=== PATIENT | female | born 1935 | race Caucasian/White ===

== ENCOUNTER → 2016-10-14 | Outpatient (CLI) | payer MEDICARE, BC ==
--- NOTE | 2016-10-15 08:38 | XR ---
EXAMINATION TYPE: XR chest 2V DATE OF EXAM: 10/14/2016 3:20 PM COMPARISON: 12/11/2011 TECHNIQUE: PA and lateral views submitted. HISTORY: Shortness of breath FINDINGS: The lungs are clear and there is no pneumothorax, pleural effusion, or focal pneumonia. Degenerative changes spine and hyperinflation noted. Correlate for COPD. Heart size is mildly enlarge d. Chronic rib deformities are stable. Arthropathy of the shoulders. No overt failure. IMPRESSION: 1. No acute process. Correlate for COPD and mild cardiomegaly.
== END | disposition home or self-care (01) ==
LOC: RADXRYALE 15:09
PROVIDERS: ATTEND Family Medicine
DX: J44.9 Chronic obstructive pulmonary disease, unspecified (principal); I51.7 Cardiomegaly
CPT/HCPCS: 71020

== ENCOUNTER → 2017-04-29 | Outpatient (CLI) | payer MEDICARE, BC ==
--- NOTE | 2017-04-29 09:04 | XR ---
EXAMINATION TYPE: XR chest 2V DATE OF EXAM: 04/29/2017 COMPARISON: 10/14/2016 TECHNIQUE: PA and lateral views submitted. HISTORY: Cough FINDINGS: The lungs are clear and there is no pneumothorax, pleural effusion, or focal pneumonia. Hypertrophi c and degenerative change of the spine. Arthropathy shoulders. The heart is enlarged. Inflation sugge sts COPD. Without rib cage deformities on the right suggest previous trauma. IMPRESSION: 1. Cardiomegaly and findings suggestive of COPD. If symptoms persist consider CT scan.
== END | disposition home or self-care (01) ==
LOC: RADXRYALE 08:35
PROVIDERS: ATTEND Family Medicine
DX: I51.7 Cardiomegaly (principal)
CPT/HCPCS: 71020

== ENCOUNTER → 2017-07-04 | Outpatient (CLI) | payer MEDICARE, BC ==
--- NOTE | 2017-07-07 09:07 | XR ---
EXAMINATION TYPE: XR chest 2V DATE OF EXAM: 07/04/2017 COMPARISON: 04/29/2017 TECHNIQUE: PA and lateral views submitted. HISTORY: Cough FINDINGS: There is consolidation left lung base. Interstitial pattern noted. No pleural effusion or pneumothora x. Heart is prominent and there is hypertrophic and degenerative change of the spine. Correlate for C OPD. IMPRESSION: 1. Left lower lobe infiltrate correlate for pneumonia. Follow to resolution to exclude other etiologi es. 2. COPD.
== END ==
LOC: RADXRYALE 11:12
PROVIDERS: ATTEND Physician Assistant Medical
DX: R91.8 Other nonspecific abnormal finding of lung field (principal); J44.9 Chronic obstructive pulmonary disease, unspecified
CPT/HCPCS: 71046

== ENCOUNTER 2017-09-02 18:11 | Inpatient (IN) | payer MEDICARE, BC ==
[2017-09-02 18:56] LABS: Anisocytosis Slight; Basophils % (A) 0 %; Eosinophils # (A) 0.1 k/uL (0-0.7); Eosinophils % (A) 1 %; HCT 28.1 % (34.0-46.0); HGB 9.2 gm/dL (11.4-16.0); Lymphocytes # (A) 0.9 k/uL (1.0-4.8); Lymphocytes % (A) 9 %; MCHC 32.9 g/dL (31.0-37.0); MCV 91.4 fL (80.0-100.0); Monocytes # (A) 0.3 k/uL (0-1.0); Monocytes % (A) 3 %; Neutrophils # (A) 7.9 k/uL (1.3-7.7); Neutrophils % (A) 85 %; Platelet Count 144 k/uL (150-450); RBC 3.08 m/uL (3.80-5.40); RDW 16.3 % (11.5-15.5); WBC 9.3 k/uL (3.8-10.6)
[2017-09-02 19:03] LABS: Calcium 8.8 mg/dL (8.4-10.2); Magnesium 2.2 mg/dL (1.6-2.3); Potassium 5.4 mmol/L (3.5-5.1); Total Bilirubin 0.6 mg/dL (0.2-1.3); Total Protein 5.7 g/dL (6.3-8.2)
[2017-09-02 19:17] LABS: Creatine Kinase <20 U/L (30-135)
[2017-09-02 19:18] LABS: D-Dimer 0.43 mg/L FEU (<0.60); INR 1.4 (<1.2); Partial Thromboplastin Time 24.6 sec (22.0-30.0); Prothrombin Time 13.3 sec (9.0-12.0)
[2017-09-02 19:31] LABS: Creatine Kinase MB 0.3 ng/mL (0.0-2.4); Troponin I 0.015 ng/mL (0.000-0.034)
--- NOTE | 2017-09-02 19:34 | ED ---
General Adult HPI - General Chief complaint: Shortness of Breath Stated complaint: SOB Time Seen by Provider: 09/02/17 19:24 Source: patient, RN notes reviewed, old records reviewed Mode of arrival: ambulatory Limitations: no limitations - History of Present Illness Initial comments: This is an 82-year-old female to the ER today. Patient's presenting for ER for evaluation of shortness of breath. Patient has history of CHF history nature fibrillation. Patient sent to ER by for evaluation, she was having increased shortness of breath especially with exertion, cannot walk across the room cannot walk even about 15 feet before becoming significantly short of breath, she is improved when she sits down, she cannot lay down flat she has to sit up straight. No chest pain. No recent travel history or sick contacts - Related Data Home Medications Medication Instructions Recorded Confirmed Albuterol Inhaler [Ventolin Hfa 1 - 2 puff INHALATION Q6HR PRN 09/02/17 09/02/17 Inhaler] Amiodarone HCl [Pacerone] 400 mg PO DAILY 09/02/17 09/02/17 Apixaban [Eliquis] 5 mg PO BID 09/02/17 09/02/17 Diltiazem HCl 30 mg PO Q8H 09/02/17 09/02/17 Furosemide [Lasix] 20 mg PO DAILY 09/02/17 09/02/17 Lisinopril [Prinivil] 20 mg PO DAILY 09/02/17 09/02/17 Metoprolol Tartrate [Lopressor] 100 mg PO TID 09/02/17 09/02/17 Montelukast [Singulair] 10 mg PO HS 09/02/17 09/02/17 [place]-3 Fatty Acids/Fish Oil [Fish 1 cap PO DAILY 09/02/17 09/02/17 Oil 1,000 mg Softgel] Pravastatin Sodium [Pravachol] 40 mg PO HS 09/02/17 09/02/17 amLODIPine [Norvasc] 10 mg PO DAILY 09/02/17 09/02/17 guaiFENesin [Mucinex] 600 mg PO DAILY 09/02/17 09/02/17 Allergies Allergy/AdvReac Type Severity Reaction Status Date / Time morphine Allergy Vomiting Verified 09/02/17 19:23 Review of Systems ROS Statement: Those systems with pertinent positive or pertinent negative responses have been documented in the HPI. ROS Other: All systems not noted in ROS Statement are negative. Past Medical History Past Medical History: Heart Failure, Hyperlipidemia, Hypertension History of Any Multi-Drug Resistant Organisms: None Reported Past Surgical History: Hysterectomy Past Psychological History: No Psychological Hx Reported Smoking Status: Never smoker Past Alcohol Use History: None Reported Past Drug Use History: None Reported General Exam Limitations: no limitations General appearance: alert, in no apparent distress, anxious Head exam: Present: atraumatic, normocephalic, normal inspection Eye exam: Present: normal appearance, PERRL, EOMI. Absent: scleral icterus, conjunctival injection, periorbital swelling ENT exam: Present: normal exam, mucous membranes moist Neck exam: Present: normal inspection. Absent: tenderness, meningismus, lymphadenopathy Respiratory exam: Present: normal lung sounds bilaterally, respiratory distress , accessory muscle use, decreased breath sounds, prolonged expiratory. Absent: wheezes, rales, rhonchi, stridor Cardiovascular Exam: Present: tachycardia, irregular rhythm, normal heart sounds. Absent: systolic murmur, diastolic murmur, rubs, gallop, clicks GI/Abdominal exam: Present: soft, normal bowel sounds. Absent: distended, tenderness, guarding, rebound, rigid Extremities exam: Present: normal inspection, full ROM, normal capillary refill. Absent: tenderness, pedal edema, joint swelling, calf tenderness Back exam: Present: normal inspection Neurological exam: Present: alert, oriented X3, CN II-XII intact Psychiatric exam: Present: normal affect, normal mood Skin exam: Present: warm, dry, intact, normal color. Absent: rash Course Vital Signs 09/02/17 09/02/17 09/02/17 18:13 18:46 20:39 Temperature 98.2 F Pulse Rate 102 H 97 Respiratory 24 22 18 Rate Blood Pressure 119/76 124/60 O2 Sat by Pulse 99 96 Oximetry - Reevaluation(s) Reevaluation #1: 09/02/17 21:02 Patient does improve with heart rate control, she states she is relatively asymptomatic when sitting still EKG Findings - EKG Comments: EKG Findings:: EKG shows A. fib with RVR rate 101, QRS 96, QTc 471 Medical Decision Making - Medical Decision Making 82 female the ER for evaluation of shortness of breath. Patient coming in with acute on chronic CHF, acute and chronic A. fib with RVR, will admit - Lab Data Result diagrams: 09/02/17 18:40 09/02/17 18:40 Lab Results 09/02/17 09/02/17 09/02/17 Range/Units 18:40 18:40 18:40 WBC 9.3 (3.8-10.6) k/uL RBC 3.08 L (3.80-5.40) m/uL Hgb 9.2 L (11.4-16.0) gm/dL Hct 28.1 L (34.0-46.0) % MCV 91.4 (80.0-100.0) fL MCH 30.0 (25.0-35.0) pg MCHC 32.9 (31.0-37.0) g/dL RDW 16.3 H (11.5-15.5) % Plt Count 144 L (150-450) k/uL Neutrophils % 85 % Lymphocytes % 9 % Monocytes % 3 % Eosinophils % 1 % Basophils % 0 % Neutrophils # 7.9 H (1.3-7.7) k/uL Lymphocytes # 0.9 L (1.0-4.8) k/uL Monocytes # 0.3 (0-1.0) k/uL Eosinophils # 0.1 (0-0.7) k/uL Basophils # 0.0 (0-0.2) k/uL Anisocytosis Slight PT (9.0-12.0) sec INR (<1.2) APTT (22.0-30.0) sec D-Dimer (<0.60) mg/L FEU Sodium 131 L (137-145) mmol/L Potassium 5.4 H (3.5-5.1) mmol/L Chloride 98 (98-107) mmol/L Carbon Dioxide 24 (22-30) mmol/L Anion Gap 9 mmol/L BUN 46 H (7-17) mg/dL Creatinine 1.30 H (0.52-1.04) mg/dL Est GFR (CKD-EPI)AfAm 45 (>60 ml/min/1.73 sqM) Est GFR (CKD-EPI)NonAf 39 (>60 ml/min/1.73 sqM) Glucose 111 H (74-99) mg/dL Calcium 8.8 (8.4-10.2) mg/dL Magnesium 2.2 (1.6-2.3) mg/dL Total Bilirubin 0.6 (0.2-1.3) mg/dL AST 23 (14-36) U/L ALT 38 (9-52) U/L Alkaline Phosphatase 51 (38-126) U/L Total Creatine Kinase <20 L (30-135) U/L CK-MB (CK-2) 0.3 (0.0-2.4) ng/mL CK-MB (CK-2) Rel Index Troponin I 0.015 (0.000-0.034) ng/mL NT-Pro-B Natriuret Pep pg/mL Total Protein 5.7 L (6.3-8.2) g/dL Albumin 3.0 L (3.5-5.0) g/dL 09/02/17 09/02/17 Range/Units 18:40 18:40 WBC (3.8-10.6) k/uL RBC (3.80-5.40) m/uL Hgb (11.4-16.0) gm/dL Hct (34.0-46.0) % MCV (80.0-100.0) fL MCH (25.0-35.0) pg MCHC (31.0-37.0) g/dL RDW (11.5-15.5) % Plt Count (150-450) k/uL Neutrophils % % Lymphocytes % % Monocytes % % Eosinophils % % Basophils % % Neutrophils # (1.3-7.7) k/uL Lymphocytes # (1.0-4.8) k/uL Monocytes # (0-1.0) k/uL Eosinophils # (0-0.7) k/uL Basophils # (0-0.2) k/uL Anisocytosis PT 13.3 H (9.0-12.0) sec INR 1.4 H (<1.2) APTT 24.6 (22.0-30.0) sec D-Dimer 0.43 (<0.60) mg/L FEU Sodium (137-145) mmol/L Potassium (3.5-5.1) mmol/L Chloride (98-107) mmol/L Carbon Dioxide (22-30) mmol/L Anion Gap mmol/L BUN (7-17) mg/dL Creatinine (0.52-1.04) mg/dL Est GFR (CKD-EPI)AfAm (>60 ml/min/1.73 sqM) Est GFR (CKD-EPI)NonAf (>60 ml/min/1.73 sqM) Glucose (74-99) mg/dL Calcium (8.4-10.2) mg/dL Magnesium (1.6-2.3) mg/dL Total Bilirubin (0.2-1.3) mg/dL AST (14-36) U/L ALT (9-52) U/L Alkaline Phosphatase (38-126) U/L Total Creatine Kinase (30-135) U/L CK-MB (CK-2) (0.0-2.4) ng/mL CK-MB (CK-2) Rel Index Troponin I (0.000-0.034) ng/mL NT-Pro-B Natriuret Pep 9880 pg/mL Total Protein (6.3-8.2) g/dL Albumin (3.5-5.0) g/dL - Radiology Data Radiology results: report reviewed (Chest x-rays negative for acute disease, chronic CHF), image reviewed Disposition Clinical Impression: Acute pulmonary edema, Congestive heart failure Disposition: ADMITTED IP TO THIS HOSP Condition: Good Referrals: Marco Shaw DO [Primary Care Provider] - 1-2 days
--- NOTE | 2017-09-02 20:17 | XR ---
EXAMINATION TYPE: XR chest 2V DATE OF EXAM: 09/02/2017 COMPARISON: 10/14/2016 HISTORY: Shortness of breath TECHNIQUE: Frontal and lateral views of the chest are obtained. FINDINGS: Opacity at the right cardiophrenic angle is chronic and may represent chronic atelectasis or prominent epicardial fat pad. Hazy opacities of the more peripheral lower lungs are linear and fav ored to represent subsegmental atelectasis. Cardiac silhouette is mildly enlarged. No pulmonary vascu lar congestion, pleural effusion or pneumothorax. Mild multilevel degenerative changes of the thoraci c spine and acromio clavicular joints are seen. IMPRESSION: Linear bibasilar opacities are favored to represent atelectasis. Chronic opacity at the right cardiop hrenic angle is unchanged from the prior and may represent additional site of atelectasis or a promin ent cardiophrenic fat pad.
[2017-09-02] MEDS ORDERED: METOPROLOL TARTRATE 5 MG/5 ML VIAL IVP STA (20:27)
[2017-09-02] MEDS: FUROSEMIDE 10 MG/ML 4 ML VIAL IV SCH (21:57)
[2017-09-02] MEDS ORDERED: MONTELUKAST 10 MG TAB PO STA (22:04)
[2017-09-02] MEDS ORDERED: PRAVASTATIN SODIUM 40 MG TAB PO STA (22:29)
[2017-09-02] MEDS ORDERED: APIXABAN 5 MG TAB PO STA (22:29)
[2017-09-02] MEDS: DILTIAZEM ORAL 30 MG TAB PO SCH (23:36)
[2017-09-03] MEDS: SYMBICORT 160-4.5 MCG INHALER INHALATION SCH ×4 (00:49→21:20)
[2017-09-03] MEDS: METOPROLOL TARTRATE 25 MG TAB PO SCH ×2 (02:05→08:19)
[2017-09-03] MEDS: METOPROLOL TARTRATE 50 MG TAB PO SCH ×3 (02:06→21:34)
[2017-09-03] MEDS ORDERED: ACETAMINOPHEN TAB 325 MG TAB PO PRN (02:46)
[2017-09-03 04:01] VITALS: BMI 28.7
[2017-09-03] MEDS: DILTIAZEM ORAL 30 MG TAB PO SCH (06:16)
[2017-09-03] MEDS: FUROSEMIDE 10 MG/ML 4 ML VIAL IV SCH (08:19)
[2017-09-03] MEDS: APIXABAN 5 MG TAB PO SCH ×2 (08:19→21:34)
[2017-09-03] MEDS: AMIODARONE 200 MG TAB PO SCH (08:19)
--- NOTE | 2017-09-03 08:58 | P.CRDCN ---
History of Present Illness History of present illness: Impression interviewed and examined. She complains of shortness of breath with minimal exertion. She has rate controlled atrial fibrillation and is on metoprolol diltiazem and amiodarone. Last week I had started amiodarone and had planned electrical cardioversion. She also has a systolic murmur audible and ablated 2-D echo after her cardioversion Plan Since she is already on ELIQUIS I cardioverted today and then repeated 2-D echo and Doppler study to evaluate her valvular structures Please see full dictation Past Medical History Past Medical History: Heart Failure, Hyperlipidemia, Hypertension History of Any Multi-Drug Resistant Organisms: None Reported Past Surgical History: Hysterectomy Additional Past Surgical History / Comment(s): R knee replacement Past Anesthesia/Blood Transfusion Reactions: No Reported Reaction Smoking Status: Never smoker - Past Family History Mother Family Medical History: Myocardial Infarction (NH) Father Family Medical History: No Reported History Medications and Allergies Home Medications Medication Instructions Recorded Confirmed Type Amiodarone HCl [Pacerone] 400 mg PO DAILY 09/02/17 09/02/17 History Apixaban [Eliquis] 5 mg PO BID 09/02/17 09/02/17 History Diltiazem HCl 30 mg PO Q8H 09/02/17 09/02/17 History Furosemide [Lasix] 20 mg PO DAILY 09/02/17 09/02/17 History Montelukast [Singulair] 10 mg PO HS 09/02/17 09/02/17 History [place]-3 Fatty Acids/Fish Oil [Fish 1 cap PO DAILY 09/02/17 09/02/17 History Oil 1,000 mg Softgel] Pravastatin Sodium [Pravachol] 40 mg PO HS 09/02/17 09/02/17 History guaiFENesin [Mucinex] 600 mg PO DAILY 09/02/17 09/02/17 History Budesonide [Pulmicort] 0.5 mg INHALATION BID 09/03/17 09/03/17 History Metoprolol Tartrate [Lopressor] 50 mg PO HS 09/03/17 09/03/17 History Metoprolol Tartrate [Lopressor] 100 mg PO PC-LUNCH 09/03/17 09/03/17 History Metoprolol Tartrate [Lopressor] 150 mg PO DAILY 09/03/17 09/03/17 History Allergies Allergy/AdvReac Type Severity Reaction Status Date / Time morphine Allergy Vomiting Verified 09/03/17 03:40 Physical Exam Vitals: Vital Signs Temp Pulse Pulse Resp BP BP Pulse Ox 09/03/17 07:25 98.6 F 92 16 121/77 96 09/03/17 04:00 16 09/03/17 03:53 97.9 F 96 16 124/66 99 09/03/17 03:20 98.1 F 78 18 105/58 99 09/03/17 02:00 80 18 09/02/17 21:29 96 18 120/71 98 09/02/17 20:39 97 18 124/60 96 09/02/17 18:46 22 09/02/17 18:13 98.2 F 102 H 24 119/76 99 Intake and Output 09/02/17 09/03/17 09/03/17 22:59 06:59 14:59 Other: Weight 80.739 kg 80.7 kg Results 09/02/17 18:40 09/02/17 18:40 Cardiac Enzymes 09/02/17 09/02/17 09/03/17 Range/Units 18:40 18:40 01:05 AST 23 (14-36) U/L CK-MB (CK-2) 0.3 (0.0-2.4) ng/mL Troponin I 0.015 0.018 (0.000-0.034) ng/mL 09/03/17 Range/Units 06:23 AST (14-36) U/L CK-MB (CK-2) (0.0-2.4) ng/mL Troponin I 0.012 (0.000-0.034) ng/mL Coagulation 09/02/17 Range/Units 18:40 PT 13.3 H (9.0-12.0) sec APTT 24.6 (22.0-30.0) sec CBC 09/02/17 Range/Units 18:40 WBC 9.3 (3.8-10.6) k/uL RBC 3.08 L (3.80-5.40) m/uL Hgb 9.2 L (11.4-16.0) gm/dL Hct 28.1 L (34.0-46.0) % Plt Count 144 L (150-450) k/uL Comprehensive Metabolic Panel 09/02/17 Range/Units 18:40 Sodium 131 L (137-145) mmol/L Potassium 5.4 H (3.5-5.1) mmol/L Chloride 98 (98-107) mmol/L Carbon Dioxide 24 (22-30) mmol/L BUN 46 H (7-17) mg/dL Creatinine 1.30 H (0.52-1.04) mg/dL Glucose 111 H (74-99) mg/dL Calcium 8.8 (8.4-10.2) mg/dL AST 23 (14-36) U/L ALT 38 (9-52) U/L Alkaline Phosphatase 51 (38-126) U/L Total Protein 5.7 L (6.3-8.2) g/dL Albumin 3.0 L (3.5-5.0) g/dL Current Medications Generic Name Dose Route Start Last Admin Trade Name Freq PRN Reason Stop Dose Admin Acetaminophen 650 mg 09/03/17 02:46 Tylenol Tab PO Q4HR PRN Fever and/ or Pain Amiodarone HCl 400 mg 09/03/17 09:00 09/03/17 08:19 Cordarone PO 400 mg DAILY SHAILA Administration Amlodipine Besylate 10 mg 09/03/17 09:00 09/03/17 08:17 Norvasc PO Not Given DAILY [facility] Apixaban 5 mg 09/03/17 09:00 09/03/17 08:19 Eliquis PO 5 mg BID SHAILA Administration Budesonide/Formoterol Fumarate 2 puff 09/02/17 22:30 09/03/17 08:00 Symbicort 160-4.5 Mcg Inhaler INHALATION Not Given RT-BID SHAILA Diltiazem HCl 30 mg 09/02/17 21:30 09/03/17 06:16 Cardizem Oral PO 30 mg Q8H SHAILA Administration Furosemide 40 mg 09/02/17 21:00 09/03/17 08:19 Lasix IV 40 mg Q12H SHAILA Administration Lisinopril 20 mg 09/03/17 09:00 09/03/17 08:19 Zestril PO 20 mg DAILY SHAILA Administration Metoprolol Tartrate 25 mg 09/02/17 21:00 09/03/17 08:19 Lopressor PO 25 mg BID SHAILA Administration Metoprolol Tartrate 100 mg 09/02/17 22:00 09/03/17 08:19 Lopressor PO 100 mg TID SHAILA Administration Pravastatin Sodium 40 mg 09/03/17 21:00 Pravachol PO HS [facility] Intake and Output 09/02/17 09/03/17 09/03/17 22:59 06:59 14:59 Other: Weight 80.739 kg 80.7 kg 09/02/17 18:40 09/02/17 18:40
[2017-09-03] MEDS ORDERED: NON-FORMULARY DRUG (Omega-3 Fatty Acids/Fish Oil [Fish Oil 1,000 Mg Softgel] 1 CAP) PO SCH (09:00)
[2017-09-03] MEDS ORDERED: PROPOFOL 10 MG/ML 20 ML VIAL IV ONE (09:00)
[2017-09-03] MEDS ORDERED: amLODIPine 10 MG TAB PO SCH (09:00)
[2017-09-03] MEDS ORDERED: LISINOPRIL 20 MG TAB PO SCH (09:00)
--- NOTE | 2017-09-03 09:21 | P.PCN ---
Preoperative Diagnosis: Procedure Electrical cardioversion Indication for procedure Symptomatic atrial fibrillation, amiodarone loading for one week, patient presented with shortness of breath once again, recurrent hospitalizations Procedure details Single 360 J biphasic shock in the AP configuration resulted in conversion to sinus rhythm the patient was in an atrial tachycardia briefly and then converted to sinus rhythm Plan Stop Cardizem/diltiazem Continue amiodarone 400 mg by mouth daily for a month and then we will reduce it down to 200 mg a day Reduce metoprolol to 50 mg twice daily Continue ELIQUIS 5 mg twice daily Disposition: observation
[2017-09-03] MEDS ORDERED: IV FLUID CONTINUATION 1,000 ML IV ONE (10:02)
--- NOTE | 2017-09-03 11:09 | CONS ---
CONSULTATION Ai Cross is an 82-year-old female who presents with shortness of breath on average activities. She says she walks across the [place] she has short of breath. She denies any chest discomfort. She states that she feels better when she sits down, sometimes she cannot sit up. She cannot lie flat sometimes. REVIEW OF SYSTEMS: No fever, chills, or rigors. No cough or expectoration. No nausea, vomiting or diarrhea. No hematuria or dysuria. No strokes or seizures. No skin lesions or musculoskeletal complaints. MEDICATIONS: Medications are reviewed and include amiodarone 400 mg p.o. daily, which I started about a week back in preparation for electrical cardioversion a month later, Eliquis for stroke prevention, diltiazem and metoprolol both because she has had difficult rate control in the past, although now today she walks in to the hospital with heart rates very well controlled. She is on Lasix, lisinopril, montelukast, Pravachol and amlodipine. ALLERGIES: Allergies to MORPHINE. PAST MEDICAL HISTORY: Past medical history of hypertension, dyslipidemia, persistent atrial fibrillation. She has a cardiac murmur. Past history of hysterectomy. SOCIAL HISTORY: She is a never smoker. PHYSICAL EXAMINATION: On examination, her blood pressure was 124/66 mmHg and 121/77 mmHg on admission, heart rate was in the 50s to 70s, irregular atrial fibrillation. Head and neck examination normal. Heart sounds, systolic murmur was audible over the precordium. Breath sounds are reduced bilaterally with no rhonchi no crackles. Abdomen is soft, nontender. Extremities are warm. No edema. IMPRESSION: 1. Increasing shortness of breath with average activities despite rate controlled atrial fibrillation. 2. Cardiac murmur. 3. Hypertension, well controlled. SUGGEST: Since she is appropriately anticoagulated, I will proceed with electrical cardioversion today. Following that, I will get a 2-D echo and Doppler study to assess her valvular structures and LV and RV size and function. Blood pressure control medications will continue. She will continue Eliquis for and her heart rate control medications will obviously have to be adjusted after cardioversion and I will plan to continue amiodarone 400 mg p.o. daily for a month and then subsequently reduce it down. LABS: Labs are reviewed. Hemoglobin is 9.2. D-dimer was normal. Potassium was 5.4. BUN is 46 and creatinine is 1.3. Three troponins are normal. NT proBNP is greater than 9000. MMODL / IJN: [id number] /
--- NOTE | 2017-09-03 15:30 | P.HPIM ---
History of Present Illness This is a pleasant 82-year-old female came in with comments of shortness of breath I do not have any after echocardiogram available at this point of time patient that has history of atrial fibrillation patient chest x-ray showed some atelectasis it was believed patient shortness of breath is related to her atrial fibrillation although rate controlled patient is not is uncontrolled because of which patient underwent electrical cardioversion and patient will return to sinus #2 a she is still complaining of shortness of breath she denied any significant orthopnea paroxysmal nocturnal dyspnea patient denied any significant cough. Chest x-ray did not show pulmonary edema but patient was on Lasix because of elevated potassium I'm holding up on lisinopril because of the low blood pressure have to hold off on the Lasix and amlodipine as well. Multiple medication changes are being made at this time. Diltiazem was discontinued patient was started on metoprolol 100 twice a day, her anti- correlation is being continued patient is hyperkalemic and received lisinopril today may require keyaxalate for the potassium will need to closely monitor electrolytes her sodium is also low at 131 patient was switched to oral Lasix this may improve her sodium. Patient was receiving IV Lasix until today. Patient ideally need to be in patient because of her continued shortness of breath multiple other provided abnormalities multiple medication changes and will need close clinical monitoring. Review of Systems REVIEW OF SYSTEMS: CONSTITUTIONAL: No fever, no malaise, no fatigue. HEENT: No recent visual problems or hearing problems. Denied any sore throat. CARDIOVASCULAR: No chest pain, orthopnea, PND, no palpitations, no syncope. PULMONARY: no cough, no hemoptysis. GASTROINTESTINAL: No diarrhea, no nausea, no vomiting, no abdominal pain. Normoactive bowel sounds. NEUROLOGICAL: No headaches, no weakness, no numbness. HEMATOLOGICAL: Denies any bleeding or petechiae. GENITOURINARY: Denies any burning micturition, frequency, or urgency. MUSCULOSKELETAL/RHEUMATOLOGICAL: Denies any joint pain, swelling, or any muscle pain. ENDOCRINE: Denies any polyuria or polydipsia. The rest of the 14-point review of systems is negative. Past Medical History Past Medical History: Heart Failure, Hyperlipidemia, Hypertension History of Any Multi-Drug Resistant Organisms: None Reported Past Surgical History: Hysterectomy Additional Past Surgical History / Comment(s): R knee replacement Past Anesthesia/Blood Transfusion Reactions: No Reported Reaction Smoking Status: Never smoker - Past Family History Mother Family Medical History: Myocardial Infarction (ID) Father Family Medical History: No Reported History Medications and Allergies Home Medications Medication Instructions Recorded Confirmed Type Amiodarone HCl [Pacerone] 400 mg PO DAILY 09/02/17 09/02/17 History Apixaban [Eliquis] 5 mg PO BID 09/02/17 09/02/17 History Diltiazem HCl 30 mg PO Q8H 09/02/17 09/02/17 History Furosemide [Lasix] 20 mg PO DAILY 09/02/17 09/02/17 History Montelukast [Singulair] 10 mg PO HS 09/02/17 09/02/17 History [place]-3 Fatty Acids/Fish Oil [Fish 1 cap PO DAILY 09/02/17 09/02/17 History Oil 1,000 mg Softgel] Pravastatin Sodium [Pravachol] 40 mg PO HS 09/02/17 09/02/17 History guaiFENesin [Mucinex] 600 mg PO DAILY 09/02/17 09/02/17 History Budesonide [Pulmicort] 0.5 mg INHALATION BID 09/03/17 09/03/17 History Metoprolol Tartrate [Lopressor] 50 mg PO HS 09/03/17 09/03/17 History Metoprolol Tartrate [Lopressor] 100 mg PO PC-LUNCH 09/03/17 09/03/17 History Metoprolol Tartrate [Lopressor] 150 mg PO DAILY 09/03/17 09/03/17 History Allergies Allergy/AdvReac Type Severity Reaction Status Date / Time morphine Allergy Vomiting Verified 09/03/17 03:40 Physical Exam Vitals: Vital Signs Temp Pulse Pulse Pulse Resp BP BP 09/03/17 12:00 16 09/03/17 11:41 98.4 F 65 16 97/47 09/03/17 10:30 59 L 16 99/54 09/03/17 10:00 57 L 18 96/51 09/03/17 09:45 57 L 18 98/53 09/03/17 09:30 57 L 15 96/52 09/03/17 08:00 16 09/03/17 07:25 98.6 F 92 16 121/77 09/03/17 04:00 16 09/03/17 03:53 97.9 F 96 16 124/66 09/03/17 03:20 98.1 F 78 18 105/58 09/03/17 02:00 80 18 09/02/17 21:29 96 18 120/71 09/02/17 20:39 97 18 124/60 09/02/17 18:46 22 09/02/17 18:13 98.2 F 102 H 24 119/76 Pulse Ox 09/03/17 12:00 09/03/17 11:41 99 09/03/17 10:30 09/03/17 10:00 94 L 09/03/17 09:45 94 L 09/03/17 09:30 95 09/03/17 08:00 09/03/17 07:25 96 09/03/17 04:00 09/03/17 03:53 99 09/03/17 03:20 99 09/03/17 02:00 09/02/17 21:29 98 09/02/17 20:39 96 09/02/17 18:46 09/02/17 18:13 99 Intake and Output 09/03/17 09/03/17 09/03/17 06:59 14:59 22:59 Intake Total 118 Balance 118 Intake: Oral 118 Other: # Voids 3 2 Weight 80.7 kg 80.7 kg PHYSICAL EXAMINATION: GENERAL: The patient is alert and oriented x3, not in any acute distress. Well developed, well nourished. HEENT: Pupils are round and equally reacting to light. EOMI. No scleral icterus. No conjunctival pallor. Normocephalic, atraumatic. No pharyngeal erythema. No thyromegaly. CARDIOVASCULAR: S1 and S2 present. No murmurs, rubs, or gallops. PULMONARY: Chest is clear to auscultation, no wheezing or crackles. ABDOMEN: Soft, nontender, nondistended, normoactive bowel sounds. No palpable organomegaly. MUSCULOSKELETAL: No joint swelling or deformity. EXTREMITIES: No cyanosis, clubbing, patient does have bilateral pedal edema NEUROLOGICAL: Gross neurological examination did not reveal any focal deficits. SKIN: No rashes. Results CBC & Chem 7: 09/02/17 18:40 09/02/17 18:40 Labs: Abnormal Lab Results - Last 24 Hours (Table) 09/02/17 09/02/17 09/02/17 Range/Units 18:40 18:40 18:40 RBC 3.08 L (3.80-5.40) m/uL Hgb 9.2 L (11.4-16.0) gm/dL Hct 28.1 L (34.0-46.0) % RDW 16.3 H (11.5-15.5) % Plt Count 144 L (150-450) k/uL Neutrophils # 7.9 H (1.3-7.7) k/uL Lymphocytes # 0.9 L (1.0-4.8) k/uL PT (9.0-12.0) sec INR (<1.2) Sodium 131 L (137-145) mmol/L Potassium 5.4 H (3.5-5.1) mmol/L BUN 46 H (7-17) mg/dL Creatinine 1.30 H (0.52-1.04) mg/dL Glucose 111 H (74-99) mg/dL Total Creatine Kinase <20 L (30-135) U/L Total Protein 5.7 L (6.3-8.2) g/dL Albumin 3.0 L (3.5-5.0) g/dL 09/02/17 Range/Units 18:40 RBC (3.80-5.40) m/uL Hgb (11.4-16.0) gm/dL Hct (34.0-46.0) % RDW (11.5-15.5) % Plt Count (150-450) k/uL Neutrophils # (1.3-7.7) k/uL Lymphocytes # (1.0-4.8) k/uL PT 13.3 H (9.0-12.0) sec INR 1.4 H (<1.2) Sodium (137-145) mmol/L Potassium (3.5-5.1) mmol/L BUN (7-17) mg/dL Creatinine (0.52-1.04) mg/dL Glucose (74-99) mg/dL Total Creatine Kinase (30-135) U/L Total Protein (6.3-8.2) g/dL Albumin (3.5-5.0) g/dL Thrombosis Risk Factor Assmnt - Choose All That Apply Each Factor Represents 1 point: Heart failure (<1month) Each Risk Factor Represents 3 Points: Age 75 years or older Thrombosis Risk Factor Assessment Total Risk Factor Score: 4 Thrombosis Risk Factor Assessment Level: Moderate Risk Assessment and Plan Plan: -Shortness of breath: Believed to be secondary to atrial fibrillation patient is cardioverted multiple medication changes were made as mentioned above patient will need to be monitored tonight are longer. Patient is on anti- correlation now -Congestive heart failure ejection fraction is unknown, unsure whether patient is in acute exacerbation on admission as of now patient is euvolemic or hypovolemic Lasix was switched to oral. -Hyperlipidemia Hyperkalemia: Secondary to lisinopril and probably renal dysfunction. Management as mentioned above -Hyponatremia probably due to excessive diuretic therapy -Chronic kidney disease: Secondary to hypertensive nephrosclerosis patient's creatinine is at her baseline will monitor basic metabolic profile C she received Lasix.
[2017-09-03] MEDS ORDERED: PRAVASTATIN SODIUM 40 MG TAB PO SCH (21:00)
[2017-09-04 03:24] VITALS: RESP 16
[2017-09-04 06:03] LABS: Anisocytosis Slight; HCT 25.3 % (34.0-46.0); HGB 8.1 gm/dL (11.4-16.0); MCH 29.7 pg (25.0-35.0); MCHC 32.1 g/dL (31.0-37.0); MCV 92.6 fL (80.0-100.0); Mean Platelet Volume 6.8; Platelet Count 130 k/uL (150-450); RBC 2.73 m/uL (3.80-5.40); RDW 16.6 % (11.5-15.5); WBC 9.1 k/uL (3.8-10.6)
[2017-09-04 06:22] LABS: Calcium 8.3 mg/dL (8.4-10.2); Potassium 4.3 mmol/L (3.5-5.1)
--- NOTE | 2017-09-04 07:39 | ECHOF ---
Referral Reason:Cardiac murmur, atrial fibrillation, MEASUREMENTS -------- HEIGHT: 165.1 cm WEIGHT: 80.3 kg BP: 96/52 IVSd: 1.3 cm (0.6 - 1.1) LVIDd: 4.6 cm (3.9 - 5.3) LVPWd: 1.3 cm (0.6 - 1.1) IVSs: 1.7 cm LVIDs: 3.5 cm LVPWs: 1.4 cm LA Diam: 4.0 cm (2.7 - 3.8) LAESV Index (A-L): 43.06 ml/m MV EXCURSION: 16.312 mm (> 18.000) MV EF SLOPE: 78 mm/s (70 - 150) EPSS: 0.5 cm MV E Behzad: 1.10 m/s MV DecT: 231 ms MV A Behzad: 0.53 m/s MV E/A Ratio: 2.05 AV maxP.75 mmHg AV meanP.85 mmHg AR PHT: 344 ms RAP: 5.00 mmHg RVSP: 54.01 mmHg FINDINGS -------- Sinus rhythm. Undetermined rhythm. This was a technically adequate study. The left ventricular size is normal. There is mild concentric left ventricular hypertrophy. Overa ll left ventricular systolic function is low-normal with, an EF between 50 - 55 %. Inferior basal H ypokinesis The right ventricle is normal in size. The right atrial size is normal. There is severe aortic valve sclerosis. There is mild aortic regurgitation. There is severe aorti c stenosis present. Peak/mean gradient across the Aortic Valve is 126.75mmHg / 77.85mmHg. pEDUNCUL ATED, MOBILE STRUCTURE ON AORTIC SURFACE OF AORTIC VALVE ? FIBROELASTOMA Mild mitral annular calcification present. Moderate mitral regurgitation is present. Mild tricuspid regurgitation present. There is moderate pulmonary hypertension. The right ventric ular systolic pressure, as measured by Doppler, is 54.01mmHg. Trace/mild (physiologic) pulmonic regurgitation. The aortic root size is normal. There is no pericardial effusion. CONCLUSIONS -------- 1. This was a technically adequate study. 2. The left ventricular size is normal. 3. There is mild concentric left ventricular hypertrophy. 4. Overall left ventricular systolic function is low-normal with, an EF between 50 - 55 %. 5. Inferior basal Hypokinesis 6. There is severe aortic valve sclerosis. 7. There is mild aortic regurgitation. 8. There is severe aortic stenosis present. 9. Peak/mean gradient across the Aortic Valve is 126.75mmHg / 77.85mmHg. 10. Mild mitral annular calcification present. 11. Moderate mitral regurgitation is present. 12. Mild tricuspid regurgitation present. 13. There is moderate pulmonary hypertension. 14. The right ventricular systolic pressure, as measured by Doppler, is 54.01mmHg. 15. Trace/mild (physiologic) pulmonic regurgitation. 16. The aortic root size is normal. 17. There is no pericardial effusion. [employer]: Carolin You RDCS
[2017-09-04] MEDS: APIXABAN 5 MG TAB PO SCH (08:43)
[2017-09-04] MEDS: METOPROLOL TARTRATE 50 MG TAB PO SCH (08:43)
[2017-09-04] MEDS: AMIODARONE 200 MG TAB PO SCH (08:43)
[2017-09-04] MEDS ORDERED: FUROSEMIDE 40 MG TAB PO SCH (09:00)
[2017-09-04] MEDS: SYMBICORT 160-4.5 MCG INHALER INHALATION SCH (09:07)
--- NOTE | 2017-09-04 10:51 | PN ---
PROGRESS NOTE This is an 82-year-old female who presented with increasing shortness of breath with minimal exertion. She underwent an electrical cardioversion yesterday to sinus rhythm and I had to readjust her medications, but she went back into atrial fibrillation at night. She has rate controlled atrial fibrillation. PHYSICAL EXAMINATION: On examination, her blood pressure is 111/70 mmHg, pulse rate is in the low 100s. She is afebrile 97.9 degree Fahrenheit. Head and neck examination is normal. Heart sounds are irregular and she has an ejection systolic murmur. Breath sounds are reduced bilaterally. Abdomen is soft, nontender. Extremities are warm. No edema. IMPRESSION: 1. Persistent symptomatic atrial fibrillation. 2. Severe aortic stenosis on 2-D echo. 3. At least moderate mitral regurgitation. 4. 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 SUGGEST: Workup for aortic stenosis. I spoke to Dr. Lissette Azul and she should be discharged today on her usual home medications that she was admitted with including restarting diltiazem at 30 mg every 8 hours, metoprolol tartrate 150 mg in the morning, 100 mg in the afternoon and 50 mg in the early evening, Eliquis, Lasix 40 mg p.o. daily and Pravachol. We will schedule her for a ABIGAIL and coronary angiography next week. The office was contacted and they will schedule this for her. She will hold Eliquis one day prior to that, and then decision regarding management of severe aortic stenosis based on the results of these studies. She should go home today. Home medication should be restarted without any changes with the exception of Lasix which should be increased to 40 mg p.o. daily. MMODL / IJN: [id number] /
--- NOTE | 2017-09-04 11:20 | CDI ---
Last Revision, May 2017 Documentation Clarification Form Date: 09/04/17 1698 From: Opal Wilder RN, CCDS Admit Date: 09/03/2017 3:15:00 PM Patient Name: Ai Cross Visit Number: [id number] ATTENTION: The Clinical Documentation Specialists (CDI) and [facility] Coding Staff appreciate your assistance in clarifying documentation. Please respond to the clarification below the line at the bottom and electronically sign. The CDI & [facility] Coding staff will review the response and follow-up if needed. Please note: Queries are made part of the Legal Health Record. If you have any questions, please contact the author of this message via ITS. Dr. Sukhwinder Espinal History/Risk Factors: SOB with minimal exertion, persistent atrial Fib, CHF type unk w/ EF 50-55%, Hyperkalemia on admission Clinical Indicators: 08/18/17 Baseline BUN/CR/GFR: 81/1.34/37 Patients Current: BUN: 46/44 CR: 1.3 GFR: 39 4/4 H&P: "Chronic kidney disease: "Secondary to hypertensive nephrosclerosis patient's creatinine is at her baseline will monitor basic metabolic profile, she received Lasix." Treatment: IVF: none Lasix 40 mg IVP Q 12 changed to 40 mg PO QD In order to capture the severity of condition, please clarify if the condition signifies: CKD Stage 1 (GFR > 90) CKD Stage 2 (GFR 60-89) CKD Stage 3 (GFR 30-59) CKD Stage 4 (GFR 15-29) CKD Stage 5 (GFR <15) ESRD Other, please specify Unable to determine Please continue to document in your progress notes and discharge summary in order to capture severity of illness and risk of mortality. Include clinical findings that support your diagnosis. MTDD
[2017-09-04 11:47] VITALS: BP 122/65; PULSE 92; TEMP 98
--- NOTE | 2017-09-04 14:53 | P.DS ---
Providers Date of admission: 09/03/17 15:15 Attending physician: Ji Gregorio Consults: 09/02/17 21:00 Consult Physician Routine Consulting Provider: Christiana Dasilva Consult Reason/Comments: chf Do you want consulting provider notified?: Yes Primary care physician: [facility] Course: Patient was admitted secondary to atrial fibrillation related shortness of breath, patient underwent cardioversion after which she is a was sinus rhythm on the last night patient went back into atrial fibrillation because of which her home and occasions for resumed patient also has some pulmonary edema for which patient was started on IV Lasix shortness of breath improved patient is still bit short of breath which is believed secondary to A. fib and the Dr. Harper as physiology evaluated the patient and he is recommending follow-up as an outpatient for further evaluation with a ABIGAIL and probable cardio version at the time. No changes in medications are being recommended except for 40 mg of oral Lasix which was increased from 20 mg. PHYSICAL EXAMINATION: GENERAL: The patient is alert and oriented x3, not in any acute distress. Well developed, well nourished. HEENT: Pupils are round and equally reacting to light. EOMI. No scleral icterus. No conjunctival pallor. Normocephalic, atraumatic. No pharyngeal erythema. No thyromegaly. CARDIOVASCULAR: S1 and S2 present. No murmurs, rubs, or gallops. PULMONARY: Chest is clear to auscultation, no wheezing, there are some crackles heard in the bilateral lung bases. ABDOMEN: Soft, nontender, nondistended, normoactive bowel sounds. No palpable organomegaly. MUSCULOSKELETAL: No joint swelling or deformity. EXTREMITIES: No cyanosis, clubbing, or pedal edema. NEUROLOGICAL: Gross neurological examination did not reveal any focal deficits. SKIN: No rashes. Assessment and Plan Plan: -Shortness of breath: Believed to be secondary to atrial fibrillation -Congestive heart failure ejection fraction is 55%, possibly of chronic diastolic dysfunction with mild acute exacerbation . -Hyperlipidemia Hyperkalemia: Secondary to lisinopril and probably renal dysfunction. Management as mentioned above -Hyponatremia probably due to excessive diuretic therapy -Chronic kidney disease stage III: Secondary to hypertensive nephrosclerosis Patient Condition at Discharge: Good Plan - Discharge Summary New Discharge Prescriptions: New Furosemide [Lasix] 40 mg PO DAILY #90 tablet Discontinued Furosemide [Lasix] 20 mg PO DAILY No Action guaiFENesin [Mucinex] 600 mg PO DAILY Pravastatin Sodium [Pravachol] 40 mg PO HS Montelukast [Singulair] 10 mg PO HS Amiodarone HCl [Pacerone] 400 mg PO DAILY Apixaban [Eliquis] 5 mg PO BID [place]-3 Fatty Acids/Fish Oil [Fish Oil 1,000 mg Softgel] 1 cap PO DAILY Diltiazem HCl 30 mg PO Q8H Metoprolol Tartrate [Lopressor] 50 mg PO HS Metoprolol Tartrate [Lopressor] 150 mg PO DAILY Metoprolol Tartrate [Lopressor] 100 mg PO PC-LUNCH Budesonide [Pulmicort] 0.5 mg INHALATION BID Discharge Medication List Amiodarone HCl [Pacerone] 400 mg PO DAILY 09/02/17 [History] Apixaban [Eliquis] 5 mg PO BID 09/02/17 [History] Diltiazem HCl 30 mg PO Q8H 09/02/17 [History] Montelukast [Singulair] 10 mg PO HS 09/02/17 [History] [place]-3 Fatty Acids/Fish Oil [Fish Oil 1,000 mg Softgel] 1 cap PO DAILY [History] Pravastatin Sodium [Pravachol] 40 mg PO HS 09/02/17 [History] guaiFENesin [Mucinex] 600 mg PO DAILY 09/02/17 [History] Budesonide [Pulmicort] 0.5 mg INHALATION BID 09/03/17 [History] Metoprolol Tartrate [Lopressor] 50 mg PO HS 09/03/17 [History] Metoprolol Tartrate [Lopressor] 100 mg PO PC-LUNCH 09/03/17 [History] Metoprolol Tartrate [Lopressor] 150 mg PO DAILY 09/03/17 [History] Furosemide [Lasix] 40 mg PO DAILY #90 tablet 09/04/17 [Rx] Follow up Appointment(s)/Referral(s): Rico Walsh MD [STAFF PHYSICIAN] - 4 Weeks (Patient will be called at home per monika.) Marco Shaw DO [Primary Care Provider] - 1-2 days Patient Instructions/Handouts: A-fib (Atrial Fibrillation) (DC), Cardioversion (DC) Activity/Diet/Wound Care/Special Instructions: [facility] - [phone] Patient may be discharged home today on her usual home medications. The only change is due to increased Lasix to 40 mg daily. She will be scheduled for a ABIGAIL and coronary angiography next week with Dr. VC Azul. The office and call her to schedule this. I will be speaking to the office tubular splitting machine tender regarding this. She will hold ELIQUIS for one day prior to the procedure. All instructions were given to her by the office staff I will see her in 4 weeks Discharge Disposition: HOME SELF-CARE
== END 2017-09-04 14:28 | disposition home or self-care (01) | DRG 308 ==
LOC: EC 18:11 → 6SEL 21:00 → 3OBS 09-03 01:56 → OBSVTOIN 09-03 15:15
PROVIDERS: ADMIT Hospitalist; ATTEND Hospitalist
PROC: 5A2204Z Restoration of Cardiac Rhythm, Single (ICD-10-PCS; principal; 2017-09-03 09:00)
DX: I48.1 Persistent atrial fibrillation (principal); I50.33 Acute on chronic diastolic (congestive) heart failure; E87.5 Hyperkalemia; I34.0 Nonrheumatic mitral (valve) insufficiency; I13.0 Hypertensive heart and chronic kidney disease with heart failure and stage 1 through stage 4 chronic kidney disease, or unspecified chronic kidney disease; I35.0 Nonrheumatic aortic (valve) stenosis; N18.3 Chronic kidney disease, stage 3 (moderate); R01.1 Cardiac murmur, unspecified; E78.5 Hyperlipidemia, unspecified; Z96.651 Presence of right artificial knee joint; T46.4X5A Adverse effect of angiotensin-converting-enzyme inhibitors, initial encounter; Z88.6 Allergy status to analgesic agent; Z79.899 Other long term (current) drug therapy; Z79.01 Long term (current) use of anticoagulants; Z82.49 Family history of ischemic heart disease and other diseases of the circulatory system; Z90.710 Acquired absence of both cervix and uterus
CPT/HCPCS: 36415; 71046; 80048; 80053; 82550; 82553; 83735; 83880; 84484; 85025; 85027; 85379; 85610; 85730; 92960; 93005; 93306; 94640; 96374; 96375; 99285